=== PATIENT | male | born 1960 | race Caucasian/White ===

== ENCOUNTER 2017-08-09 22:51 | Emergency (ER) | payer OTHER ==
[~2017-08-09 22:51] MED LIST: AMOX-559 PO; FAM20 PO; IBU600 PO; LEV500P IV; LOR5/325 PO; NO RX; PHENA200 PO
--- NOTE | 2017-08-09 22:59 | ER Report ---
History and Physical Time Seen By MD: 22:59 Hx. of Stated Complaint: one week ago had electrical wire gammed into left thumb HPI/ROS CHIEF COMPLAINT: thumb injury infection HISTORY OF PRESENT ILLNESS: This is a 57 year old male. One week ago he had an injury to his left thumb. He was removing a screw using an electric drill. The screw came out and then went into his left thumb, puncturing the thumb at the base of the thumbnail. He has been doing basic wound care, but now the wound is increasing in size and there is more pain and more redness and swelling of the surrounding skin. Allergies: Coded Allergies: No Known Drug Allergies (Verified , 08/09/17) Home Meds Active Scripts Cephalexin Monohydrate (CEPHALEXIN) 500 Mg Cap, 500 MG PO Q6H, #20 CAP 0 Refills Prov:JANAE HEATH MD 08/10/17 Discontinued Scripts Amoxicillin/Pot Clav 875-125 Mg Tab (AUGMENTIN 875-125 TABLET) 1 Each Tablet, 1 TAB PO Q12H, #20 TAB Prov:PAOLA WHITING UNIFORM DESIGNER 03/25/15 Reviewed Nurses Notes: Yes Hx Smoking: No Smoking Status: Never Smoker Exposure to Second Hand Smoke?: No Constitutional Vital Sign - Last 24 Hours 08/09/17 08/10/17 22:55 00:35 Temp 97.3 Pulse 45 Resp 12 B/P (MAP) 136/84 128/81 (97) Pulse Ox 95 O2 Delivery Room Air Physical Exam General: Alert, no acute distress. Skin: wound at the base of the left thumb's nail. redness and warmth and pain in the area. Musculoskeletal: Normal motor function. Cardiovascular: normal cap refill Neuro: Normal sensation. Medical Decision Making EKG/Imaging Imaging FINGER LEFT THUMB HISTORY: Drilled through the thumb Three-view examination of the left thumb FINDINGS: No acute osseous pathology noted. Joint spaces well-maintained. Soft tissue without obvious foreign material. No evidence of soft tissue air. There is to be slight disruption of the soft tissues along the base of the nailbed. IMPRESSION: 1. Negative left thumb for acute bony pathology. Apparent soft tissue disruption at the base of the nailbed compatible with the clinical history. Report Dictated By: Saran Cardozo MD at 08/10/2017 12:00 AM ED Course/Re-evaluation ED Course Procedure: Wound debridement Verbal consent from patient after discussing repair options, risks and benefits. Wound cleaned extensively with saline and Hibiclens Anesthesia: Digital block of the thumb using 1% lidocaine without epinephrine. Location: left thumb, proximal nail bed. Character: Puncture wound through the nail.. The wound was cleaned, debridement of tissues down to a good wound bed. Does involve about 4mm of the nail bed, but the rest of the nail and proximal growth area is unaffected. The patient will watch the wound and do basic care with antibiotics at this time. Will see if the nail will grow out or there is a possibility that it would need to have the nail removed. He will follow-up with Dr. Kearns for re-evaluation. Wound care instructions discussed. Cephalexin 500mg four times a day for 5 days. Decision to Disposition Date: August 10, 2017 Decision to Disposition Time: 00:26 Depart Departure Latest Vital Signs Vital Signs Date Time Temp Pulse Resp B/P (MAP) Pulse Ox O2 Delivery O2 Flow Rate FiO2 08/10/17 00:35 128/81 (97) 08/09/17 22:55 97.3 45 12 95 Room Air Impression: Primary Impression: Laceration of thumb with infection Condition: Improved Disposition: HOME OR SELF-CARE New Scripts Cephalexin Monohydrate (CEPHALEXIN) 500 Mg Cap 500 MG PO Q6H, #20 CAP 0 Refills Prov: JANAE HEATH MD 08/10/17 Patient Instructions: Wound Infection (ED) Additional Instructions: The wound in your thumb appears to be infected. The wound has affected part of the nail at the base from where it grows. This may grow out on it's own with time, but may cause problems and possibly the need to have the nail removed. We will start with antibiotics after cleaning up the wound tonight. Take Cephalexin 500mg 4 times a day for 5 days. Was the wound and scrub it with soap and water, twice a day. If having further pain or not healing well, please follow-up with Dr. Kearns for further evaluation and discussion if removing the nail is needed. Please see him in the next 1-2 weeks. Problem Qualifiers Primary Impression: Laceration of thumb with infection Encounter type: initial encounter Laterality: left Qualified Codes: S61.012A - Laceration without foreign body of left thumb without damage to nail , initial encounter; L08.9 - Local infection of the skin and subcutaneous tissue , unspecified JANAE HEATH MD August 09, 2017 23:00
--- NOTE | 2017-08-10 00:06 | RADIOLOGY IMAGING REPORT ---
FACILITY: [facility] - [place] PATIENT NAME: Dylan Gardiner : 1960 MR: [id number] V: [id number] EXAM DATE: ORDERING PHYSICIAN: JANAE HEATH TECHNOLOGIST: Location: [facility] Patient: Dylan Gardiner : 1960 Visit/Account:[id number] Date of Sevice: 08/09/2017 FINGER LEFT THUMB HISTORY: Drilled through the thumb Three-view examination of the left thumb FINDINGS: No acute osseous pathology noted. Joint spaces well-maintained. Soft tissue without obvious foreign m aterial. No evidence of soft tissue air. There is to be slight disruption of the soft tissues along t he base of the nailbed. IMPRESSION: 1. Negative left thumb for acute bony pathology. Apparent soft tissue disruption at the base of the n ailbed compatible with the clinical history. Report Dictated By: Saran Cardozo MD at 08/10/2017 12:00 AM Report E-Signed By: Saran Cardozo MD at 08/10/2017 12:02 AM WSN:[id number]
[2017-08-10] MEDS ORDERED: ACETAMINOPHEN 500 MG TAB PO ONE (00:25)
[2017-08-10] MEDS ORDERED: CEPHALEXIN MONO 500 MG CAP PO ONE (00:25)
[2017-08-10] MEDS ORDERED: CEPH500C24 PO (00:27)
[2017-08-10 00:35] VITALS: BP 128/81
== END 2017-08-10 00:35 | disposition home or self-care (01) ==
LOC: ER 23:04
DX: S61.012A Laceration without foreign body of left thumb without damage to nail, initial encounter (principal); L08.9 Local infection of the skin and subcutaneous tissue, unspecified
CPT/HCPCS: 99282

== ENCOUNTER → 2017-11-03 | Outpatient (REF) | payer OTHER ==
[~2017-11-03] MED LIST changes: +CEPH500C24 PO
--- NOTE | 2017-11-03 10:34 | RADIOLOGY IMAGING REPORT ---
FACILITY: [facility] PATIENT NAME: Dylan Gardiner : 1960 MR: [id number] V: [id number] EXAM DATE: ORDERING PHYSICIAN: DOT DEMPSEY TECHNOLOGIST: Location: [facility] [place] Patient: Dylan Gardiner : 1960 Visit/Account:[id number] Date of Sevice: 11/03/2017 Chest with lateral, two views. HISTORY: Work physical. COMPARISON: 10/09/2015. Three images were obtained. The heart and mediastinum are unremarkable. Pulmonary vessels are unrem arkable. The lungs are slightly voluminous, unchanged. The pleural surfaces are unremarkable. No pne umothorax. No acute bony abnormalities. IMPRESSION: No evidence of acute cardiopulmonary disease. Report Dictated By: Bean Dyer MD at 11/03/2017 10:29 AM Report E-Signed By: Bean Dyer MD at 11/03/2017 10:30 AM WSN:[email or web address]
--- NOTE | 2017-11-03 12:58 | RT STRESS TEST REPORT ---
FACILITY: [facility] PATIENT NAME: ESVIN ODEN : [id number] MR: [id number] V: [id number] EXAM DATE: ORDERING PHYSICIAN: DOT DEMPSEY TECHNOLOGIST: [employer] Time: 2017-11-03 09:03:22 Total Exercise Time: 00:14:12 Test Indications: Physical Medications: None Protocol: BRUCE2 Max HR: 141 BPM 85% of Pred: 164 BPM Max BP: 175/130 mmHG Max Work Load: 17.2 METS Excellent exercise tolerance Rate related ST changes noted Impression No ischemic changes or symptoms noted to suggest ischemia Confirmed by JOANNA HERNANDEZ ([id number]) on 11/03/2017 12:57:38 PM Referred By: Overread By: JOANNA HERNANDEZ
== END ==
LOC: RESP 00:49 → EDSTATUS 09:00
PROVIDERS: ATTEND Physician Assistant
DX: Z00.00 Encounter for general adult medical examination without abnormal findings (principal)
CPT/HCPCS: 71046; 93017

== ENCOUNTER 2017-12-02 20:26 | Emergency (ER) | payer OTHER ==
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
[2017-12-02 22:00] VITALS: BP 108/60
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
== END 2017-12-02 22:18 | disposition home or self-care (01) ==
LOC: ER 20:42
DX: S90.32XA Contusion of left foot, initial encounter (principal); S80.11XA Contusion of right lower leg, initial encounter; W20.8XXA Other cause of strike by thrown, projected or falling object, initial encounter
CPT/HCPCS: 99284